=== PATIENT | female | born 1965 | race Caucasian/White ===

== ENCOUNTER → 2018-03-20 | Outpatient (CLI) | payer BC | LOC: M.ULTRA 07:49 | DX: K76.0 Fatty (change of) liver, not elsewhere classified (principal); E78.2 Mixed hyperlipidemia; R79.89 Other specified abnormal findings of blood chemistry; R74.0 Nonspecific elevation of levels of transaminase and lactic acid dehydrogenase [LDH] ==

== ENCOUNTER → 2018-03-20 | Outpatient (CLI) | payer OTHER | LOC: M.CT 07:54 | DX: Z13.6 Encounter for screening for cardiovascular disorders (principal) ==

== ENCOUNTER → 2020-08-21 | Outpatient (CLI) | payer OTHER | LOC: M.RAD 08:55 | PROVIDERS: ATTEND Family Medicine | DX: Z12.31 Encounter for screening mammogram for malignant neoplasm of breast (principal) ==

== ENCOUNTER → 2021-11-09 | Outpatient (CLI) | payer OTHER | LOC: M.RAD 09:32 | PROVIDERS: ATTEND Family Medicine | DX: Z12.31 Encounter for screening mammogram for malignant neoplasm of breast (principal) ==